=== PATIENT | male | born 1975 | race Caucasian/White ===

== ENCOUNTER 2023-03-31 11:06 | Day surgery (SDC) | payer BC ==
[~2023-03-31 11:06] MED LIST: Lactated Ringers 1,000 ML IV SCH
[2023-03-31] MEDS ORDERED: propofoL 50 ML ONE (11:46)
[2023-03-31] MEDS ORDERED: Lactated Ringers 1,000 ML IV SCH (12:30)
== END 2023-03-31 12:50 | disposition home or self-care (01) ==
LOC: MW.SDS 11:06
PROVIDERS: ATTEND Surgery
DX: K62.5 Hemorrhage of anus and rectum (principal); K64.8 Other hemorrhoids; M17.12 Unilateral primary osteoarthritis, left knee; Z79.899 Other long term (current) drug therapy; M06.9 Rheumatoid arthritis, unspecified; E66.9 Obesity, unspecified; Z87.891 Personal history of nicotine dependence; Z79.52 Long term (current) use of systemic steroids; Z68.32 Body mass index [BMI] 32.0-32.9, adult
CPT/HCPCS: 45378; J2704; J7120